=== PATIENT | male | born 1980 | race Caucasian/White ===

== ENCOUNTER 2020-12-07 23:00 | Emergency (ER) | payer OTHER ==
[~2020-12-07] VITALS: Ht 175.3 cm; Wt 99.8 kg
[2020-12-07] MEDS ORDERED: LORAZEPAM 0.5 MG TABLET PO ONE (23:45)
[2020-12-07 23:54] VITALS: BP 138/78
[2020-12-07] MEDS ORDERED: LORAZEPAM 1 MG TABLET ONE (23:54)
--- NOTE | 2020-12-07 23:54 | NUR ---
Patient discharged to home in stable condition with sister taking patient home. Written and verbal after care instructions given. Patient verbalizes understanding of instructions. Stressed follow up or return to ER for worsening s/s.
== END 2020-12-07 23:54 | disposition home or self-care (01) ==
LOC: ER 23:04
DX: F41.0 Panic disorder [episodic paroxysmal anxiety] (principal); R03.0 Elevated blood-pressure reading, without diagnosis of hypertension
CPT/HCPCS: A4663